=== PATIENT | male | born 1965 ===

== ENCOUNTER → 2025-02-19 11:10 | Outpatient (BNV) | payer OTHER, SELFPAY | PROVIDERS: Visit Provider Internal Medicine Cardiovascular Disease | DX: I49.3 Ventricular premature depolarization (principal) | CPT/HCPCS: 93244 ==

== ENCOUNTER → 2025-02-19 13:30 | Outpatient (REF) | payer OTHER, SELFPAY ==
--- NOTE | 2025-02-19 | HM_ITS ---
Conclusion: 1. Patient was monitored for total period of 3 days 2. Baseline was normal sinus rhythm with average heart of 59 beats per minute 3. No significant pauses noted but frequent sinus bradycardia noted with 63.8% of the time heart rate below 60 beats per minute 4. Frequent PVCs noted with total burden of 2.55% 5. Three short runs of SVT, longest lasting 25 beats at 160 beats per minute 6. No patient reported events MTDD
--- OUTSIDE RECORDS SUMMARY | 2025-02-22 20:00 | XMS_ITS | Encounter Summary ---
Author Organization [facility] Address [address] [facility] [address] [place] [phone] Phone Care Team Providers Care Wallpaper Hanger Name Role Phone Mike Porter MD Primary Care Provider Encounter Details Date Type Department Care Team (Late st Contact Info) Description 01/12/2025 Procedure Pass [facility], Ct Scan - [facility] [address] [place] [address] Social History Tobacco Use Types Packs/Day Years Used Date Smoking Tobacco: Never Assessed Education Answer Date Recorded Are you interested in more education? Not on baljit e 09/26/2022 Are you concerned about learning? Not on file 09/26/2022 No 09/26/2022 No 09/26/2022 Food Answer Date Recorded Within the past 6 months we worried whether our food would run out before we got money to buy more. Never True 01/12/2025 Within the past 6 months the food we bought just didn't last and we didn't have enough money to get more. Never True Residential Stability Answer Date Recor ded What is your housing situation today? I have sallie sing 01/12/2025 How many times have you move d in the past 12 months? Zero (I did not move) 01/12/2025 Paying for Meds Answer Date Recorded Do you have trouble paying for medicines? No 01/12/2025 Paying Utility Bills Answer Date Record ed Do you have trouble paying your heating or elect ricity bill? No 01/12/2025 Transportation Answer Date Recorded Has the lack of transportati on kept you from medical appointments or from getting medications? No 01/12/2025 Digital Access Answer Date Recorded No 01/12/2025 Yes 01/12/2025 Do you have reliable internet access at home? Ye s 01/12/2025 Do you have a device (e.g., phone, tablet, computer) with a working camera? Yes 01/12/2025 Intimate Partner Violence Answer Date R ecorded Are you denied basic needs s uch as food, clothing, or medical care? No 01/12/2025 In the past 12 months have y ou been in a relationship with a person who hurts, threatens, or tries to control you? No 01/12/2025 Are you denied basic needs s uch as food, clothing, or medical care? No 01/12/2025 In the past 12 months have y ou been in a relationship with a person who hurts, threatens, or tries to control you? No 01/12/2025 Sex and Gender Information Value Date Recorded Sex Assigned at Male 08/21/2022 3:10 PM EDT Legal Sex Male 11:29 AM EDT Gender Identity Male 08/21/2022 3:10 PM EDT Sexual Orientation Straight 08/21/2022 3: 10 PM EDT documented as of this encounter Functional Status * Calculated C-SSRS Risk Score (Lifetime/Recent) Answer Date of Assessment Author No Risk Indicated 01/12/2025 2:48 PM EDT Ian Saenz RN * [place] Suicide Severity Rating Scale (Screener/Recent Self-Report) Question Answer Date of Assessment Author 1. Wish to be (Past 1 Month) No 025 2:48 PM EDT Ian Hart RN 2. Non-Specific Active Suici hina Thoughts (Past 1 Month) No 01/12/2025 2:48 PM EDT Yury Hart RN 6. Suicidal Behavior (Lifetime) No 5 2:48 PM EDT Ian Hart RN documented as of this encounter Plan of Treatment Not on file documented as of this encounter Visit Diagnoses Not on filedocumented in this encounter Care Teams Wallpaper Hanger Relationship Specialty Start Date End Date Mike Porter MD [address] [place] [phone] [email or web address] PCP - General Internal Medicine 08/21/22 documented as of this encounter Additional Source Comments The information contained in this document represents components of the legal health record. It is not the complete legal health record.[facility]
--- OUTSIDE RECORDS SUMMARY | 2025-02-22 20:00 | XMS_ITS | Encounter Summary ---
Author Organization [facility] Address [address] [facility] [address] [place] [phone] Phone Care Team Providers Care Inspector Precision Assembly Name Role Phone Mike Porter MD Primary Care Provider Encounter Details Date Type Department Care Team (Late st Contact Info) Description 01/12/2025 Procedure Pass [facility], Ct Scan - [facility] [address] [place] [address] Social History Tobacco Use Types Packs/Day Years [...] 2:48 PM EDT Ian Saenz RN * [place] Suicide Severity Rating Scale (Screener/Recent Self-Report) Question [...] on filedocumented in this encounter Care Teams Inspector Precision Assembly Relationship Specialty Start Date End Date Mike Porter MD [address] [place] [id number] [email or web address] PCP - General Internal Medicine 08/21/22 documented as of this encounter Additional Source Comments The information contained in this document represents components of the legal health record. It is not the complete legal health record.[facility]
--- OUTSIDE RECORDS SUMMARY | 2025-02-22 20:00 | XMS_ITS | Clinical Summary ---
Author Organization [facility] Address [address] [place] [address] Care Team Providers Care Fluid Pump Operator Name Role Phone Mike Porter Primary Care Provider [phone] Allergies No known active allergies Medications ketoconazole (NIZORAL) 2% creamIndications :Seborrheic dermatitis Apply to rash on face daily as needed 30 g 11 10/19/2022 Active Social History Tobacco Use Types Packs/Day Years Used Date Smoking Tobacco: Never Assessed Sex and Gender Information Value Date Recorded Sex Assigned at Male 08/24/2022 4:39 PM EDT Legal Sex Male 4:22 PM EDT Gender Identity Male 08/24/2022 4:39 PM EDT Sexual Orientation Straight 08/24/2022 4: 39 PM EDT Last Filed Vital Signs Vital Sign Reading Time Taken Comments Blood Pressure - - Pulse - - Temperature - - Respiratory Rate - - Oxygen Saturation - - Inhaled Oxygen Concentration - - Weight 83.9 kg (185 lb) 10/19/2022 10:55 AM EDT Height 177.8 cm (5' 10 ) 10/19/2022 10:55 AM EDT Body Mass Index 26.54 10/19/2022 10:55 AM EDT Plan of Treatment Health Maintenance Due Date Last Done Comments Cologuard 1967 Colon Cancer Screening 1967 Colonoscopy 1967 FOBT / Fit Test 1967 HIV Screening 1967 Hepatitis C Screening 1967 Sigmoidoscopy 1967 Hepatitis B Vaccines (1 of 3 - 19+ 3-dose series) 1986 DTaP,Tdap,and Td Vaccines (1 - Tdap) 1989 Pneumococcal Vaccine: 50+ Ye ars (1 of 1 - PCV) 2017 Alcohol/Substance Use Screening 05/31/2024 Depression Screening and Follow-Up 05/31/2024 Social Drivers of Health [place] ual Screening 05/31/2024 COVID-19 Vaccine (4 - 2024-2 6 season) 2025 03/20/2022, 06/17/2021, 09/27/2020 Influenza Vaccine (#1) 2025 , 04/03/2021, 03/28/2020, Additional history exists RSV Vaccine (60+ years old a nd patients) (1 - 1-dose 75+ series) 2042 Zoster Vaccines Completed 08/21/2022, 12/03/2021 Insurance [facility] [place] [id number] Care Teams Fluid Pump Operator Relationship Specialty Start Date End Date Mike Porter [address] [place] [address] [place] [address] PCP - General Internal Medicine 08/24/22
--- OUTSIDE RECORDS SUMMARY | 2025-02-22 20:00 | XMS_ITS | Encounter Summary ---
Author Organization [facility] Address [address] [place] [address] Care Team Providers Care Chip Washer Name Role Phone Mike Porter Primary Care Provider [phone] Encounter Details Date Type Department Care Team (Late st Contact Info) Description 08/24/2022 Telephone [facility] Central Scheduling Department [address] [place] [phone] Telephone Intake, Staff Social History Tobacco Use Types Packs/Day Years Used Date Smoking Tobacco: Never Assessed Sex and Gender Information Value Date Recorded Sex Assigned at Male 08/24/2022 4:39 PM EDT Legal Sex Male 4:22 PM EDT Gender Identity Male 08/24/2022 4:39 PM EDT Sexual Orientation Straight 08/24/2022 4: 39 PM EDT documented as of this encounter Miscellaneous Notes * Telephone Encounter - Zora Lopez - 08/24/2022 4:49 PM EDT New pt looking to schedule a CSE with spot of concern on head. Pt prefers to see MD, I was unable to book with MD only RETAIL PHARMACY MANAGER/PA. Could you please contact pt to assist? Thank you! documented in this encounter Plan of Treatment Not on file documented as of this encounter Visit Diagnoses Not on filedocumented in this encounter Care Teams Chip Washer Relationship Specialty Start Date End Date Mike Porter [address] [place] [address] [place] [address] PCP - General Internal Medicine 08/24/22 documented as of this encounter
--- OUTSIDE RECORDS SUMMARY | 2025-02-22 20:00 | XMS_ITS | Clinical Summary ---
Author Organization [facility] Address [address] [place] [phone] Phone Care Team Providers Care Engine Tester Name Role Phone Mike Porter MD Primary Care Provider Medications No known medications Encounters Date Type Department Care Team Description 01/18/2025 1:40 PM EDT Office Visit [facility] Department of Orthopaedic Surgery, Shoulder Service [address] [facility], [address], [address] [place] [address] Cayden Ashton MD Traumatic complete tear of right rotator cuff, initial encounter (Primary Dx) 01/17/[address] [facility] Department of Orthopaedic Surgery, Shoulder Service [address] [facility], [address] [place] [address] Glenna Andrade Right shoulder pain (Primary Dx); Left shoulder pain 01/12/2025 2:20 PM EDT - 01/12/2025 5:34 PM EDT Emergency [facility] [address] [place] [address] Discharge Disposition: Home or Self Care 01/12/2025 Procedure [facility] Ct Scan [facility] [address] [place] [address] 01/12/[address] [address] 12/19/2024 4:10 PM EDT - 12/19/2024 11:59 PM EDT Hospital Encounter [address] [address] Mike Porter MD Discharge Disposition: Home or Self Care 11/27/2024 Procedure Pass [address] [address] 11/27/2024 Transcribe Orders Virtual Department [address] [place] [phone] Mike Porter MD Right shoulder pain, unspecified chronicity (Primary Dx) from Last 3 Months Social History Tobacco Use Types Packs/Day Years [...] Orientation Straight 08/21/2022 3: 10 PM EDT Last Filed Vital Signs Vital Sign Reading Time Taken Comments Blood Pressure 135/78 01/12/2025 4:30 PM EDT Pulse 57 01/12/2025 4:30 PM EDT Temperature 36.7 C (98.1 F) 01/12/2025 4:30 PM EDT Respiratory Rate 18 01/12/2025 4:30 PM EDT Oxygen Saturation 99% 01/12/2025 4:30 PM EDT Inhaled Oxygen Concentration - - Weight - - Height - - Body Mass Index - - Plan of Treatment Health Maintenance Due Date Last Done Comments Adult Td,Tdap Booster 1967 LIPID PANEL 1967 DEPRESSION SCREENING 1979 SMOKING Hx and SMOKELESS TOB ACCO SCREENING 1980 HEPATITIS C SCREENING 1985 HIV ONE-TIME SCREENING (18-6 5 YEARS) 1985 COLOGUARD 2012 COLONOSCOPY 2012 COLORECTAL CANCER SCREENING 2012 FIT TEST 2012 FOBT 2012 SIGMOIDOSCOPY 2012 VIRTUAL COLONOSCOPY 2012 PNEUMOCOCCAL VACCINES (50+ y ears) (1 of 1 - PCV) 2017 ZOSTER VACCINES (1 of 2) 2017 INFLUENZA VACCINE (#1) 2024 COVID-19 VACCINE (1 - 2023-2 5 season) 2025 HEPATITIS A VACCINES Aged Out No long er eligible based on patient's age to complete this topic HIB VACCINES Aged Out No longer eligi ble based on patient's age to complete this topic MENINGOCOCCAL VACCINES (ACWY) Aged Out No longer eligible based on patient's age to complete this topic MENINGOCOCCAL VACCINES (B) Aged Out N o longer eligible based on patient's age to complete this topic Medical Devices Not on file Procedures Procedure Name Priority Date/Time Associated Diagnosis Comments XR HAND 3 OR MORE VIEWS (LEFT) Routine 01/12/2025 3:[address] CERVICAL SPINE WITHOUT CONTRAST Routine 01/12/2025 2:[address] HEAD WITHOUT CONTRAST Routine 01/12/2025 2:27 PM EDT MRI SHOULDER WITHOUT CONTRAST (RIGHT) Routine 12/19/2024 5:10 PM EDT Right shoulder pain, unspecified chronicity from Last 3 Months Results * XR HAND 3 OR MORE VIEWS (LEFT) (01/12/2025 3:50 PM EDT) Anatomical Region Laterality Modality Hand Left Computed Radiogr aphy 01/12/2025 4:15 PM EDT Impressions 01/12/2025 4:17 PM EDT No fracture or dislocation. Narrative 01/12/2025 4:17 PM EDT XR HAND 3 OR MORE VIEWS (LEFT) Referring clinician's provided indication for this examination in [facility]: Pain COMPARISON: None. FINDINGS: No fracture. Normal alignment. Normal joint spaces. Procedure Note Ruel Olmedo MD - 01/12/2025 XR HAND 3 OR MORE VIEWS (LEFT) Referring clinician's provided indication for this examination in [facility]:Pain COMPARISON: None. FINDINGS: No fracture. Normal alignment. Normal joint spaces. IMPRESSION: No fracture or dislocation. Blanka Ordonez PA-C IMG XR UPPER EXTREMITY Final Result * CT CERVICAL SPINE WITHOUT CONTRAST (01/12/2025 2:27 PM EDT) Anatomical Region Laterality Modality C-spine Computed Tomogra phy 01/12/2025 3:06 PM EDT Impressions 01/12/2025 3:12 PM EDT 1. No acute intracranial findings. 2. No acute fracture or traumatic malalignment of the cervical spine. Narrative 01/12/2025 3:[address] HEAD WITHOUT CONTRAST, CT CERVICAL SPINE WITHOUT CONTRAST Referring clinician's provided indication for this examination in [facility]: * Head trauma, mod-severe TECHNIQUE: CTs of the head and cervical spine were performed without intravenous contrast using tailored dose modulation techniques. Images were reconstructed in the axial, coronal, and sagittal planes. COMPARISON: None. FINDINGS: HEAD: Brain Parenchyma: No midline shift, mass effect, parenchymal hemorrhage, or evidence of acute territorial infarct. Ventricular System and Extra-Axial Spaces: No extra-axial fluid collections. Basal cisterns are patent. No hydrocephalus. Osseous and Extracranial Structures: No calvarial fracture or significant soft tissue hematoma. No significant paranasal sinus disease. No orbital abnormality. CERVICAL SPINE: Alignment and Vertebrae: Straightening of the usual cervical lordosis. Vertebral bodies and posterior elements are intact. Discs and Endplates: Degenerative changes of the spine, most marked at C5-C6. Other Findings: No thyroid nodules. Lung apices are clear. Procedure Note Ruel Olmedo MD - 01/12/2025 CT HEAD WITHOUT CONTRAST, CT CERVICAL SPINE WITHOUT CONTRAST Referring clinician's provided indication for this examination in [facility]: *Head trauma, mod-severe TECHNIQUE: CTs of the head and cervical spine were performed withoutintravenous contrast using tailored dose modulation techniques. Imageswere reconstructed in the axial, coronal, and sagittal planes. COMPARISON: None. FINDINGS: HEAD: Brain Parenchyma: No midline shift, mass effect, parenchymal hemorrhage,or evidence of acute territorial infarct. Ventricular System and Extra-Axial Spaces: No extra-axial fluidcollections. Basal cisterns are patent. No hydrocephalus. Osseous and Extracranial Structures: No calvarial fracture or significantsoft tissue hematoma. No significant paranasal sinus disease. No orbitalabnormality. CERVICAL SPINE: Alignment and Vertebrae: Straightening of the usual cervical lordosis.Vertebral bodies and posterior elements are intact. Discs and Endplates: Degenerative changes of the spine, most marked atC5-C6. Other Findings: No thyroid nodules. Lung apices are clear. IMPRESSION: 1. No acute intracranial findings. 2. No acute fracture or traumatic malalignment of the cervical spine. Blanka Ordonez PA-C IMMonroe CT XSPECIALTY ORDER MIA Final Result * CT HEAD WITHOUT CONTRAST (01/12/2025 2:27 PM EDT) Anatomical Region Laterality Modality Head Computed Tomogra phy 01/12/2025 3:06 PM EDT Impressions 01/12/2025 3:12 PM EDT 1. No acute intracranial findings. 2. No acute fracture or traumatic malalignment of the cervical spine. Narrative 01/12/2025 3:[address] HEAD WITHOUT CONTRAST, CT CERVICAL SPINE WITHOUT CONTRAST Referring clinician's provided indication for this examination in [facility]: * Head trauma, mod-severe TECHNIQUE: CTs of the head and cervical spine were performed without intravenous contrast using tailored dose modulation techniques. Images were reconstructed in the axial, coronal, and sagittal planes. COMPARISON: None. FINDINGS: HEAD: Brain Parenchyma: No midline shift, mass effect, parenchymal hemorrhage, or evidence of acute territorial infarct. Ventricular System and Extra-Axial Spaces: No extra-axial fluid collections. Basal cisterns are patent. No hydrocephalus. Osseous and Extracranial Structures: No calvarial fracture or significant soft tissue hematoma. No significant paranasal sinus disease. No orbital abnormality. CERVICAL SPINE: Alignment and Vertebrae: Straightening of the usual cervical lordosis. Vertebral bodies and posterior elements are intact. Discs and Endplates: Degenerative changes of the spine, most marked at C5-C6. Other Findings: No thyroid nodules. Lung apices are clear. Procedure Note Ruel Olmedo MD - 08/15/2025 CT HEAD WITHOUT CONTRAST, CT CERVICAL SPINE WITHOUT CONTRAST Referring clinician's provided indication for this examination in [facility]: *Head trauma, mod-severe TECHNIQUE: CTs of the head and cervical spine were performed withoutintravenous contrast using tailored dose modulation techniques. Imageswere reconstructed in the axial, coronal, and sagittal planes. COMPARISON: None. FINDINGS: HEAD: Brain Parenchyma: No midline shift, mass effect, parenchymal hemorrhage,or evidence of acute territorial infarct. Ventricular System and Extra-Axial Spaces: No extra-axial fluidcollections. Basal cisterns are patent. No hydrocephalus. Osseous and Extracranial Structures: No calvarial fracture or significantsoft tissue hematoma. No significant paranasal sinus disease. No orbitalabnormality. CERVICAL SPINE: Alignment and Vertebrae: Straightening of the usual cervical lordosis.Vertebral bodies and posterior elements are intact. Discs and Endplates: Degenerative changes of the spine, most marked atC5-C6. Other Findings: No thyroid nodules. Lung apices are clear. IMPRESSION: 1. No acute intracranial findings. 2. No acute fracture or traumatic malalignment of the cervical spine. Blanka Ordonez PA-C IMMonroe CT HEAD/NECK Final Result * MRI SHOULDER WITHOUT CONTRAST (RIGHT) (12/19/2024 5:10 PM EDT) Anatomical Region Laterality Modality Shoulder Right Magnetic Resonan ce 12/21/2024 2:47 PM EDT Impressions 12/21/2024 2:50 PM EDT High-grade, partial-thickness interstitial tear at the supraspinatus tendon insertion. Subacromial-subdeltoid bursitis. Narrative 12/21/2024 2:50 PM EDT MRI SHOULDER WITHOUT CONTRAST (RIGHT) Referring clinician's provided indication for this examination in [facility]: Outside Radiology Order; shoulder pain TECHNIQUE: Multi-sequence, multi-planar MRI of the shoulder without intravenous contrast. COMPARISON: None FINDINGS: Coracoacromial Arch: There are moderate acromioclavicular degenerative changes. There is subacromial-subdeltoid bursal edema with a small amount of fluid. Rotator Cuff: There is a high-grade, partial-thickness interstitial tear at the supraspinatus tendon insertion measuring 8 mm wide. There is adjacent reactive bone marrow edema in the greater tuberosity. There are smaller, low-grade interstitial tears infraspinatus tendon insertion. No focal muscle atrophy. Glenoid Labrum and Biceps Tendon: No displaced labral tear. Biceps tendon is intact. Bones: No fracture, osteonecrosis, or focal lesion. Glenohumeral Joint: No cartilage defect. No joint effusion or synovitis. No capsulitis. Procedure Note Valerie Andujar MD - 12/21/2024 MRI SHOULDER WITHOUT CONTRAST (RIGHT) Referring clinician's provided indication for this examination in Epic:Outside Radiology Order; shoulder pain TECHNIQUE: Multi-sequence, multi-planar MRI of the shoulder withoutintravenous contrast. COMPARISON: None FINDINGS: Coracoacromial Arch: There are moderate acromioclavicular degenerativechanges. There is subacromial-subdeltoid bursal edema with a small amountof fluid. Rotator Cuff: There is a high-grade, partial-thickness interstitial tearat the supraspinatus tendon insertion measuring 8 mm wide. There isadjacent reactive bone marrow edema in the greater tuberosity. There aresmaller, low-grade interstitial tears infraspinatus tendon insertion. Nofocal muscle atrophy. Glenoid Labrum and Biceps Tendon: No displaced labral tear. Biceps tendonis intact. Bones: No fracture, osteonecrosis, or focal lesion. Glenohumeral Joint: No cartilage defect. No joint effusion or synovitis.No capsulitis. IMPRESSION: High-grade, partial-thickness interstitial tear at the supraspinatustendon insertion. Subacromial-subdeltoid bursitis. Mike Porter MD IMG MR EXTREMITY Final Resul t from Last 3 Months Insurance [facility] TOTAL CHOICE [facility]ITY [facility] TOTAL CHOICE INDEMNITY [facility] TOTAL CHOICE INDEMNITY [employer] TOTAL CHOICE INDEMNITY [employer] TOTAL CHOICE INDEMNITY [employer] TOTAL CHOICE INDEMNITY [facility] TOTAL CHOICE INDEMNITY Care Teams Engine Tester Relationship Specialty Start Date End Date Mike Porter MD [address] [place] [address] [place] [id number] [email or web address] PCP - General Internal Medicine 08/21/22 Additional Source Comments The information contained in this document represents components of the legal health record. It is not the complete legal health record.[facility]
--- OUTSIDE RECORDS SUMMARY | 2025-02-22 20:00 | XMS_ITS | Encounter Summary ---
Author Organization [facility] Address [address] [place] [phone] Phone Care Team Providers Care Cmm Technician Name Role Phone Mike Porter MD Primary Care Provider Encounter Details Date Type Department Care Team (Late st Contact Info) Description 11/27/2024 Procedure Pass [facility], [address] [address] Social History Tobacco Use Types Packs/Day Years Used Date Smoking Tobacco: Never Assessed Education Answer Date Recorded Are you interested in more education? Not on baljit e 09/26/2022 Are you concerned about learning? Not on file 09/26/2022 No 09/26/2022 No 09/26/2022 Digital Access Answer Date Recorded No 10/27/2022 No 10/27/2022 Reliable internet access at home? Not on file 10/27/2022 Device with a working camera? Not on file Sex and Gender Information Value Date Recorded Sex Assigned at Male 08/21/2022 3:10 PM EDT Legal Sex Male 11:29 AM EDT Gender Identity Male 08/21/2022 3:10 PM EDT Sexual Orientation Straight 08/21/2022 3: 10 PM EDT documented as of this encounter Plan of Treatment Not on file documented as of this encounter Visit Diagnoses Not on filedocumented in this encounter Care Teams Cmm Technician Relationship Specialty Start Date End Date Mike Porter MD [address] [place] [phone] [email or web address] PCP - General Internal Medicine 08/21/22 documented as of this encounter Additional Source Comments The information contained in this document represents components of the legal health record. It is not the complete legal health record.[facility]
--- OUTSIDE RECORDS SUMMARY | 2025-02-22 20:00 | XMS_ITS | Encounter Summary ---
Author Organization [facility] Address [address] [place] [phone] Phone Care Team Providers Care Donor Relations Officer Name Role Phone Mike Porter MD Primary Care Provider [phone] Reason for Referral * MRI/CAT Scan - Closed Specialty Diagnoses / Procedures Referred By Breanna fisher Referred To Contact Radiology Diagnoses Right shoulder pain, unspecified chronicity Procedures MRI Shoulder (Right) CHG MRI, JOINT UPPER EXTREM COMBO CHG MRI, JOINT UPPER EXTREM W/CONTRAST CHG MRI, JOINT UPPER EXTREM Mike Porter MD [address] [place] [address] Phone: tel: fax: mailto: Referral ID Status Reason Start Date Expiration Date Visits Re quested Visits Authorized [id number] Closed 11/27/2024 12/26/2024 1 1 Encounter Details Date Type Department Care Team (Late st Contact Info) Description 11/27/2024 Transcribe Orders Virtual Department [address] [place] [address] Mike Porter MD [address] [place] [phone] [email or web address] Right shoulder pain, unspecified chronicity (Primary Dx) Social History Tobacco Use Types Packs/Day Years [...] on file documented as of this encounter Results * MRI SHOULDER WITHOUT CONTRAST (RIGHT) (12/19/2024 5:10 PM EDT) Anatomical Region Laterality Modality Shoulder Right Magnetic Resonan ce 12/21/2024 2:47 PM EDT Impressions 12/21/2024 2:50 PM EDT High-grade, partial-thickness interstitial tear at the supraspinatus tendon insertion. Subacromial-subdeltoid bursitis. Narrative 12/21/2024 2:50 PM EDT MRI SHOULDER WITHOUT CONTRAST (RIGHT) Referring clinician's provided indication for this examination in Epic: Outside Radiology Order; shoulder pain TECHNIQUE: Multi-sequence, [...] MD IMG MR EXTREMITY Final Resul t documented in this encounter Visit Diagnoses Diagnosis Right shoulder pain, unspecified chronicity- Primary Right shoulder pain, unspecified chronicity documented in this encounter Care Teams Donor Relations Officer Relationship Specialty Start Date End Date Mike Porter MD [address] [place] [phone] [email or web address] PCP - General Internal Medicine 08/21/22 documented as of this encounter Additional Source Comments The information contained in this document represents components of the legal health record. It is not the complete legal health record.[facility]
--- OUTSIDE RECORDS SUMMARY | 2025-02-22 20:00 | XMS_ITS | Encounter Summary ---
Author Organization [facility] Address [address] [place] [address] Phone Care Team Providers Care Catering Operations Manager Name Role Phone Mike Porter MD Primary Care Provider Encounter Details Date Type Department Care Team (Late st Contact Info) Description 01/17/2025 Orders Only [facility] Department of Orthopaedic Surgery, Shoulder Service [address], [address] [place] [address] Glenna Andrade [address] [place] [phone] [email or web address] Right shoulder pain (Primary Dx); Left shoulder pain Social History Tobacco Use Types Packs/Day Years [...] documented as of this encounter Visit Diagnoses Diagnosis Right shoulder pain- Primary Pain in joint, shoulder region Left shoulder pain Pain in joint, shoulder region documented in this encounter Care Teams Catering Operations Manager Relationship Specialty Start Date End Date Mike Porter MD [address] [place] [phone] PCP - General Internal Medicine 08/21/22 documented as of this encounter Additional Source Comments The information contained in this document represents components of the legal health record. It is not the complete legal health record.[facility]
== END ==
LOC: HO.CARD 13:30
PROVIDERS: Visit Provider Emergency Medicine
DX: R00.1 Bradycardia, unspecified (principal)
CPT/HCPCS: 93242